=== PATIENT | female | born 1995 | race Caucasian/White ===

== ENCOUNTER 2018-01-14 10:03 | Emergency (ER) | payer MEDICAID, OTHER ==
[2018-01-14] MEDS ORDERED: ONDANSETRON HCL 4 MG/2 ML SOL IV ONE (10:54)
[2018-01-14] MEDS ORDERED: SODIUM CHLORIDE 0.9% 1000 ML SOL IV SCH ×2 (11:00→12:30)
[2018-01-14 11:05] VITALS: BP 143/99; PULSE 114; RESP 24; TEMP 96.5; O2SAT 100
[2018-01-14] MEDS ORDERED: ONDANSETRON HCL 4 MG/2 ML SOL ONE (11:06)
[2018-01-14] MEDS ORDERED: NOVOLOG FLEXPEN SC ONE (11:09)
[2018-01-14 11:43] LABS: ABG PCO2 < 11 mmHg (35-45); ABG PH 7.05 (7.35-7.45); ABG PO2 140 mmHg (80-100)
[2018-01-14] MEDS ORDERED: PROMETHAZINE HYDROCHLORIDE 25 MG/ML SOL IV ONE (11:47)
[2018-01-14] MEDS ORDERED: PROMETHAZINE HYDROCHLORIDE 25 MG/ML SOL ONE (11:56)
[2018-01-14 12:00] LABS: BASOPHILS % (AUTO) 1 % (0-3); EOSINOPHILS % (AUTO) 0 % (0-9); HEMATOCRIT 55 % (35-47); HEMOGLOBIN 17.9 gm/dl (12.0-15.5); LYMPHOCYTES % (AUTO) 3.5 % (10-50); MEAN CORPUSCULAR HEMOGLOBIN 31.7 pg (27.0-32.0); MEAN CORPUSCULAR HGB CONC 32.5 gm/dl (32.0-36.0); MEAN CORPUSCULAR VOLUME 97 fL (81-99); MONOCYTES % (AUTO) 1.9 % (0-12); NEUTROPHILS % (AUTO) 93.6 % (37-80)
[2018-01-14] MEDS ORDERED: NOVOLOG FLEXPEN SC SCH (12:00)
[2018-01-14 12:06] LABS: BLOOD UREA NITROGEN 12 mg/dl (7-18); CALCIUM 9.6 mg/dl (8.5-10.1); CHLORIDE 94 mMol/L (98-107); CREATININE 0.82 mg/dl (0.60-1.00); POTASSIUM 4.1 mMol/L (3.5-5.1); SODIUM 126 mMol/L (136-145)
[2018-01-14 12:08] LABS: CARBON DIOXIDE < 5 mEq/L (21-32); GLUCOSE 472 mg/dl (74-106)
[2018-01-14 12:28] LABS: APPEARANCE,URINE Clear; BILIRUBIN,URINE NEGATIVE (NEGATIVE); COLOR,URINE Yellow; GLUCOSE, URINE (UA) 2+ (NEGATIVE); KETONES,URINE 4+ (NEGATIVE); LEUKOCYTE ESTERASE ,URINE NEGATIVE (NEGATIVE); NITRATE,URINE NEGATIVE (NEGATIVE); OCCULT BLOOD,URINE TRACE INTACT (NEG-TRACE); UROBILINOGEN,URINE 0.2 (0.2-1.0 EU)
[2018-01-14 12:43] LABS: BACTERIA RARE (< 1+); CRYSTALS NEGATIVE (0-3 AVE/HPF); EPITHELIAL CELLS 0-1 (SQUAMOUS); RBC,URINE NEG (0-3AV/HPF); WBC,URINE NEG (0-5AV/HPF)
[2018-01-14 12:57] LABS: AMPHETAMINES NEGATIVE (NEGATIVE); BARBITUATES NEGATIVE (NEGATIVE); BENZODIAZEPINES NEGATIVE (NEGATIVE); CANNABINOL(THC) POSITIVE (NEGATIVE); COCAINE(COC) NEGATIVE (NEGATIVE); METHADONE NEGATIVE (NEGATIVE); METHAMPHETAMINES NEGATIVE (NEGATIVE); OPIATES(OPI) NEGATIVE (NEGATIVE); OXYCODONE(OXY) NEGATIVE (NEGATIVE); PROPOXYPHENE(PPX) NEGATIVE (NEGATIVE); TRICYCLIC ANTIDEPRESSANTS NEGATIVE (NEGATIVE)
[2018-01-14] MEDS ORDERED: INSULIN HUMAN REGULAR 100 U/ML SOL ONE (13:16)
[2018-01-14] MEDS ORDERED: INSULIN HUMAN REGULAR 500 U in SODIUM CHLORIDE 0.9% 500 ML 500 ML IV SCH (13:30)
[2018-01-14 14:19] LABS: MAGNESIUM 1.7 mg/dl (1.8-2.4)
== END 2018-01-14 14:38 | disposition short-term general hospital (02) | DRG 391 ==
LOC: ED 10:03
DX: R11.2 Nausea with vomiting, unspecified (principal); E11.10 Type 2 diabetes mellitus with ketoacidosis without coma; R06.02 Shortness of breath; R10.9 Unspecified abdominal pain; Z3A.18 18 weeks gestation of pregnancy; E86.0 Dehydration
CPT/HCPCS: 36600; 80048; 80305; 81001; 82009; 82803; 82962; 83735; 84100; 85025; 96365; 96366; 96372; 96374; 96375; 99283; 99285; J1815; J2405; J2550

== ENCOUNTER 2018-09-09 10:38 | Emergency (ER) | payer BC, OTHER ==
[2018-09-09] MEDS ORDERED: SODIUM CHLORIDE 0.9% 1000ML 1,000 ML IV ONE ×3 (10:44→12:52)
[2018-09-09] MEDS ORDERED: ONDANSETRON HCL 4 MG/2 ML SOL IV ONE (10:46)
[2018-09-09] MEDS ORDERED: ONDANSETRON HCL 4 MG/2 ML SOL ONE (10:54)
[2018-09-09 10:58] LABS: LACTIC ACID 1.7 mMol/L (0.0-2.0)
[2018-09-09] MEDS ORDERED: INSULIN HUMAN REGULAR 100 U/ML SOL IV ONE (10:59)
[2018-09-09 11:00] LABS: BASOPHILS % (AUTO) 1 % (0-3); EOSINOPHILS % (AUTO) 0 % (0-9); HEMATOCRIT 54 % (35-47); HEMOGLOBIN 17.2 gm/dl (12.0-15.5); LYMPHOCYTES % (AUTO) 14.9 % (10-50); MEAN CORPUSCULAR HEMOGLOBIN 31.2 pg (27.0-32.0); MEAN CORPUSCULAR HGB CONC 32.1 gm/dl (32.0-36.0); MEAN CORPUSCULAR VOLUME 97 fL (81-99); NEUTROPHILS % (AUTO) 80.8 % (37-80)
[2018-09-09 11:14] LABS: ALBUMIN 4.7 gm/dl (3.4-5.0); BILIRUBIN,TOTAL 0.3 mg/dl (0.2-1.0); CALCIUM 8.7 mg/dl (8.5-10.1); CARBON DIOXIDE 6.5 mEq/L (21-32); CREATININE 1.2 mg/dl (0.60-1.00); MAGNESIUM 2.2 mg/dl (1.8-2.4); POTASSIUM 4.6 mMol/L (3.5-5.1); TOTAL PROTEIN 8.9 gm/dl (6.4-8.2)
[2018-09-09] MEDS ORDERED: INSULIN HUMAN REGULAR 100 U/ML SOL ONE (11:22)
[2018-09-09 11:25] LABS: ABG PCO2 < 11 mmHg (35-45); ABG PH 6.92 (7.35-7.45)
[2018-09-09 11:31] LABS: ABG PO2 140 mmHg (80-100)
[2018-09-09 12:19] LABS: CALCIUM 7.6 mg/dl (8.5-10.1); CARBON DIOXIDE 5.2 mEq/L (21-32); CREATININE 1.02 mg/dl (0.60-1.00); POTASSIUM 4.5 mMol/L (3.5-5.1)
[2018-09-09] MEDS ORDERED: INSULIN HUMAN REGULAR 500 U in SODIUM CHLORIDE 0.9% 500 ML 500 ML IV SCH (12:30)
[2018-09-09 12:51] LABS: APPEARANCE,URINE Clear; BILIRUBIN,URINE NEGATIVE (NEGATIVE); COLOR,URINE Yellow; GLUCOSE, URINE (UA) 2+ (NEGATIVE); KETONES,URINE 4+ (NEGATIVE); LEUKOCYTE ESTERASE ,URINE NEGATIVE (NEGATIVE); NITRATE,URINE NEGATIVE (NEGATIVE); OCCULT BLOOD,URINE TRACE LYSED (NEG-TRACE); UROBILINOGEN,URINE 0.2 (0.2-1.0 EU)
[2018-09-09] MEDS ORDERED: POTASSIUM CHLORIDE 2 MEQ/ML SOL IV ONE (12:56)
[2018-09-09] MEDS ORDERED: DEXTROSE/SALINE 0.9% 1,000 ML with POTASSIUM CHLORIDE 2 MEQ/ML 20 MEQ IV SCH (13:00)
[2018-09-09 13:22] VITALS: TEMP 97.3
[2018-09-09 13:26] LABS: BACTERIA NEGATIVE (< 1+); CRYSTALS NEGATIVE (0-3 AVE/HPF); RBC,URINE 0-3 (0-3AV/HPF); WBC,URINE 0-2 (0-5AV/HPF)
[2018-09-09 13:32] VITALS: PULSE 120
[2018-09-09 13:41] LABS: CARBON DIOXIDE 6.5 mEq/L (21-32); CREATININE 0.88 mg/dl (0.60-1.00); POTASSIUM 4.7 mMol/L (3.5-5.1)
[2018-09-09 14:24] VITALS: BP 134/102; RESP 30; O2SAT 93
== END 2018-09-09 14:18 | disposition short-term general hospital (02) | DRG 639 ==
LOC: ED 10:38
DX: E10.10 Type 1 diabetes mellitus with ketoacidosis without coma (principal); Z79.4 Long term (current) use of insulin; E86.0 Dehydration
CPT/HCPCS: 36415; 36600; 71045; 80048; 80053; 81001; 82800; 82803; 82962; 83735; 85025; 87040; 93005; 96365; 96366; 96374; 96375; 99285; 99291; J1815; J2405; J3480

== ENCOUNTER 2018-11-17 14:55 | Emergency (ER) | payer OTHER | END 2018-11-17 16:19 | disposition home or self-care (01) | LOC: ED 14:55 ==